=== PATIENT | male | born 1995 | race African-American/Black ===

== ENCOUNTER 2024-03-03 13:19 | Emergency (ER) | payer OTHER ==
[~2024-03-03] VITALS: Ht 190.5 cm; Wt 102.7 kg
[2024-03-03] MEDS: IBUPROFEN 600MG TAB PO ONE (15:24)
[2024-03-03] MEDS ORDERED: NAPR-885 PO (16:21)
[2024-03-03] MEDS ORDERED: METH-1164 PO (16:22)
[2024-03-03 16:30] VITALS: BP 122/61; TEMP 97.6; O2SAT 100
== END 2024-03-03 16:38 | disposition home or self-care (01) ==
LOC: M ED 13:19
DX: S86.091A Other specified injury of right Achilles tendon, initial encounter (principal); Y92.9 Unspecified place or not applicable; Y93.67 Activity, basketball; Y99.9 Unspecified external cause status; Z79.899 Other long term (current) drug therapy

== ENCOUNTER 2024-07-13 16:30 | Emergency (ER) | payer OTHER ==
[~2024-07-13 16:30] MED LIST: METH-1164 PO; NAPR-885 PO
[2024-07-13] MEDS ORDERED: IBUPROFEN 800 MG TAB PO ONE (18:25)
[2024-07-13] MEDS: KETOROLAC 60MG 2ML VIAL IM ONE (18:40)
[2024-07-13] MEDS ORDERED: IBUP80TA PO (19:38)
[2024-07-13 19:40] VITALS: BP 130/63; TEMP 97.7; O2SAT 100
== END 2024-07-13 19:52 | disposition home or self-care (01) ==
LOC: M ED 16:30
DX: S82.442A Displaced spiral fracture of shaft of left fibula, initial encounter for closed fracture (principal); W19.XXXA Unspecified fall, initial encounter; V00.311A Fall from snowboard, initial encounter; Y92.89 Other specified places as the place of occurrence of the external cause; Y93.23 Activity, snow (alpine) (downhill) skiing, snowboarding, sledding, tobogganing and snow tubing; Y99.9 Unspecified external cause status
CPT/HCPCS: 73610; 96372; 99283; J1885

== ENCOUNTER 2024-07-27 07:28 | Day surgery (SDC) | payer OTHER ==
[~2024-07-27] VITALS: Ht 190.5 cm; Wt 113.9 kg
[~2024-07-27 07:28] MED LIST changes: +IBUP80TA PO
[2024-07-27] MEDS ORDERED: fentaNYL 100 MCG/2 ML INJECTION As Ordered ONE (08:26)
[2024-07-27] MEDS ORDERED: ONDANSETRON 4MG 2ML VIAL As Ordered ONE (08:27)
[2024-07-27] MEDS ORDERED: ACETAMINOPHEN 1000MG/100ML IV BAG As Ordered ONE (08:27)
[2024-07-27] MEDS ORDERED: MIDAZOLAM INJ 2MG/2ML VIAL As Ordered ONE (08:27)
[2024-07-27] MEDS ORDERED: LIDOCAINE 2% 100MG/5ML SDV (FOR ANES.) As Ordered ONE (08:27)
[2024-07-27] MEDS ORDERED: propofoL 200 MG/20 ML VIAL As Ordered ONE (08:27)
[2024-07-27] MEDS ORDERED: dexmedeTOMIDine (4MCG/ML)200MCG/50ML BTL (PRECEDEX) As Ordered ONE (08:31)
[2024-07-27] MEDS ORDERED: NS (Normal Saline) 0.9% 1,000 ML IV SCH ×2 (09:55→14:00)
[2024-07-27] MEDS ORDERED: ROCURONIUM BROMIDE 50MG/5ML VIAL As Ordered ONE (10:31)
[2024-07-27] MEDS: ceFAZolin SOD 2 GM in IV 1 EA IV ONE (11:22)
[2024-07-27] MEDS: TRANEXAMIC ACID 100 MG/ML 10ML VIAL IV ONE (11:44)
[2024-07-27] MEDS ORDERED: SUGAMMADEX SODIUM 500 MG/5 ML VIAL (BRIDION) As Ordered ONE (11:44)
[2024-07-27] MEDS ORDERED: KETOROLAC 60MG 2ML VIAL As Ordered ONE (11:44)
[2024-07-27] MEDS: ceFAZolin 1GM VIAL As Ordered ONE (11:52)
[2024-07-27] MEDS ORDERED: HYDROmorphone HCL 2MG/ML 1ML VIAL As Ordered ONE (11:57)
[2024-07-27] MEDS: VANCOMYCIN 1000MG/20ML VIAL As Ordered ONE (12:00)
[2024-07-27] MEDS: TRANEXAMIC ACID 100 MG/ML 10ML VIAL As Ordered ONE (12:00)
[2024-07-27] MEDS: BUPivacaine LIPOSOME/PF 266MG 20ML VIAL (13.3MG/ML)(EXPAREL) As Ordered ONE (13:27)
[2024-07-27] MEDS ORDERED: fentaNYL 100 MCG/2 ML INJECTION IV PRN (14:00)
[2024-07-27] MEDS: ONDANSETRON 4MG 2ML VIAL IV PRN (14:33)
[2024-07-27] MEDS: oxyCODONE 5MG TAB PO PRN (14:36)
[2024-07-27] MEDS: HYDROMORPHONE HCL 0.5 MG/ 0.5 ML SYRINGE IV PRN (14:36)
[2024-07-27 16:50] VITALS: BP 129/65; TEMP 98; O2SAT 97
== END 2024-07-27 16:55 | disposition home or self-care (01) ==
LOC: M SDC 07:28
PROVIDERS: ATTEND Orthopaedic Surgery
DX: S82.432A Displaced oblique fracture of shaft of left fibula, initial encounter for closed fracture (principal); X58.XXXA Exposure to other specified factors, initial encounter; Y93.23 Activity, snow (alpine) (downhill) skiing, snowboarding, sledding, tobogganing and snow tubing; Y92.9 Unspecified place or not applicable
CPT/HCPCS: 27792; 76000; C1713; J0131; J0665; J0666; J0690; J1100; J1171; J1885; J2250; J2405; J3010; J3370